=== PATIENT | male | born 1960 | race Caucasian/White ===

== ENCOUNTER → 2017-09-26 | Outpatient (CLI) | payer OTHER ==
[~2017-09-26] MED LIST: AMOX-559 PO; ATOR40TA24 PO; BENZ200C15 PO; CETI10CA8 PO; CITA-145 PO; GUAI120L3 PO; TOBR5DRO43 OP; TRIA10.8 IH
[2017-09-26 08:20] LABS: PLATELET COUNT, AUTOMATED 192 K/uL (150-450)
[2017-09-26 09:28] LABS: LDL CHOLESTEROL 87 mg/dl
== END ==
LOC: LAB 07:43
PROVIDERS: ATTEND Nurse Practitioner Family
DX: Z12.5 Encounter for screening for malignant neoplasm of prostate (principal); E78.5 Hyperlipidemia, unspecified; Z79.899 Other long term (current) drug therapy
CPT/HCPCS: 36415; 82040; 82247; 82310; 82374; 82435; 82465; 82565; 82947; 83718; 84075; 84132; 84153; 84155; 84295; 84443; 84450; 84460; 84478; 84520; 85025

== ENCOUNTER → 2018-03-24 | Outpatient (CLI) | payer OTHER ==
[~2018-03-24] MED LIST changes: +ROSU20TA5 PO; +ROSU40TA18 PO
[2018-03-24 09:10] LABS: PLATELET COUNT, AUTOMATED 195 K/uL (150-450)
[2018-03-24 09:20] LABS: LDL CHOLESTEROL 101 mg/dl
== END ==
LOC: LAB 08:37
PROVIDERS: ATTEND Nurse Practitioner Family
DX: E78.5 Hyperlipidemia, unspecified (principal); R71.8 Other abnormality of red blood cells
CPT/HCPCS: 36415; 82040; 82247; 82310; 82374; 82435; 82465; 82565; 82947; 83718; 84075; 84132; 84155; 84295; 84450; 84460; 84478; 84520; 85025

== ENCOUNTER → 2018-06-06 | Outpatient (CLI) | payer OTHER ==
[~2018-06-06] MED LIST changes: +EZET10TA41 PO; +MONT10TA PO
[2018-06-06 08:33] LABS: LDL CHOLESTEROL 79 mg/dl
== END ==
LOC: LAB 07:47
PROVIDERS: ATTEND Nurse Practitioner Family
DX: E78.5 Hyperlipidemia, unspecified (principal)
CPT/HCPCS: 36415; 82040; 82247; 82310; 82374; 82435; 82465; 82565; 82947; 83718; 84075; 84132; 84155; 84295; 84450; 84460; 84478; 84520

== ENCOUNTER → 2018-08-29 | Outpatient (CLI) | payer OTHER ==
[2018-08-29 08:36] LABS: LDL CHOLESTEROL 49 mg/dl
== END ==
LOC: LAB 07:54
PROVIDERS: ATTEND Nurse Practitioner Family
DX: E78.01 Familial hypercholesterolemia (principal)
CPT/HCPCS: 36415; 82040; 82247; 82310; 82374; 82435; 82465; 82565; 82947; 83718; 84075; 84132; 84155; 84295; 84450; 84460; 84478; 84520

== ENCOUNTER → 2018-10-03 | Outpatient (CLI) | payer OTHER ==
[~2018-10-03] MED LIST changes: +DIPH0.5S2 IM; +HEPA20VI IM; +HEPA50VI4 IM; +VARI50KI IM
--- NOTE | 2018-10-03 09:22 | RADIOLOGY IMAGING REPORT ---
FACILITY: [facility] PATIENT NAME: Cisco Richmond : 1960 MR: [id number] V: [id number] EXAM DATE: ORDERING PHYSICIAN: JULIAN MELO TECHNOLOGIST: Location: [facility] Patient: Cisco Richmond : 1960 Visit/Account:[id number] Date of Sevice: 10/03/2018 LIVER HISTORY: Elevated LFTs COMPARISON: None. FINDINGS: Gallbladder: Unremarkable; no stones or sludge. Liver: Negative. Common duct: Normal, three mm diameter. Pancreas: Partially obscured by bowel, visualized aspects unremarkable. Right kidney: Right kidney measures 9.5 cm in length. There is no evidence of hydronephrosis. There is a 1.2 cm cyst lateral aspect of the interpolar region Upper abdominal aorta and IVC: Patent. Ascites: None visualized. IMPRESSION: Incidental 1.2 cm right renal cyst otherwise unremarkable right upper quadrant ultrasound Report Dictated By: Nina Santiago MD at 10/03/2018 9:08 AM Report E-Signed By: Nina Santiago MD at 10/03/2018 9:16 AM WSN:[email or web address]
== END ==
LOC: US 01:36
PROVIDERS: ATTEND Nurse Practitioner Family
DX: N28.1 Cyst of kidney, acquired (principal)
CPT/HCPCS: 76705